=== PATIENT | female | born 1955 | race Caucasian/White ===

== ENCOUNTER 2024-11-02 11:55 | Inpatient (IN) | payer MEDICARE, MEDICAID ==
[~2024-11-02] VITALS: Ht 157.5 cm; Wt 52.6 kg
[2024-11-02] MEDS: HALOPERIDOL LACTATE 5 MG/ML VIAL IM ONE (12:09)
[2024-11-02] MEDS: DiphenhydrAMINE HCL 50 MG/ML VIAL IM ONE (12:09)
[2024-11-02] MEDS: LORazepam 2 MG/ML VIAL IM ONE (12:10)
[2024-11-02 13:06] LABS: BASOPHILS % (AUTO) 0.5 % (0.0-2.0); EOSINOPHILS % (AUTO) 0.4 % (1.0-6.0); HEMATOCRIT 36.6 % (36-46); HEMOGLOBIN 12.2 g/dL (12.0-16.0); LYMPHOCYTES # (AUTO) 1.1 K/uL (1.0-4.8); LYMPHOCYTES % (AUTO) 21.4 % (22.0-44.0); MEAN CORPUSCULAR HEMOGLOBIN 29.5 pg (26.0-34.0); MEAN CORPUSCULAR HGB CONC 33.4 G/dL (31.0-37.0); MEAN CORPUSCULAR VOLUME 89 fL (80-100); MONOCYTES # (AUTO) 0.4 K/uL (0.1-1.0); MONOCYTES % (AUTO) 7.5 % (2.0-9.0); NEUTROPHILS # (AUTO) 3.7 K/uL (1.8-7.7); NEUTROPHILS % (AUTO) 70.2 % (40.0-70.0); PLATELET COUNT (AUTO) 258 K/uL (150-450); RED BLOOD CELL COUNT(AUTO) 4.13 MIL/uL (4.00-5.20); RED CELL DISTRIBUTION WIDTH 13.1 % (11.5-14.5); WHITE BLOOD COUNT (AUTO) 5.3 K/uL (4.5-11.0)
[2024-11-02 13:07] LABS: COVID AG,FIA SOURCE NASAL SWAB
[2024-11-02 13:15] LABS: ANION GAP 10 mmol/L (8-16); CALCIUM, TOTAL 8.5 mg/dL (8.8-10.5); CARBON DIOXIDE 25 mmol/L (22-29); CHLORIDE 105 mmol/L (98-107); CREATININE 0.82 mg/dL (0.60-1.30); GLOMERULAR FILTR. RATE CALC > 60 mL/min (>60); GLUCOSE,RANDOM 119 mg/dL (70-110); POTASSIUM 3.4 mmol/L (3.5-5.1); SODIUM SERUM 140 mmol/L (136-145); UREA NITROGEN, BLOOD 16 mg/dL (7-18)
[2024-11-02 13:29] LABS: ALCOHOL, BLOOD (SERUM) < 3 mg/dL (0-10)
[2024-11-02 13:54] LABS: SARS-COV2 (COVID) ANTIGEN,FIA Negative (Negative)
[2024-11-02] MEDS: POTASSIUM CHLORIDE 20 MEQ ER TABLET PO ONE (13:57)
[2024-11-02] MEDS ORDERED: MAGNESIUM HYDROXIDE SUSPENSION 30 ML UDCUP PO PRN (16:30)
[2024-11-02] MEDS ORDERED: ZOLPIDEM TARTRATE 10 MG TABLET PO PRN (16:30)
[2024-11-02] MEDS ORDERED: LORazepam 2 MG TABLET PO PRN (16:30)
[2024-11-02] MEDS ORDERED: ACETAMINOPHEN 325 MG TABLET PO PRN (16:30)
[2024-11-02] MEDS ORDERED: HALOPERIDOL 5 MG TABLET PO PRN (16:30)
[2024-11-02] MEDS ORDERED: LOPERAMIDE HCL 2 MG CAPSULE PO PRN (16:30)
[2024-11-02] MEDS ORDERED: MAG HYDROX/ALUMINUM HYD/SIMETH ES 30 ML SUSPENSION UDCUP PO PRN (16:30)
[2024-11-03] MEDS ORDERED: INFLUENZA VIRUS VACCINE TVS (6MO+) 2024-25/PF 45 MCG/0.5 ML SYRINGE IM. ONE (06:00)
[2024-11-03] MEDS ORDERED: PNEUMOCOCCAL VACCINE POLYVALENT 0.5 ML SYRINGE [PPSV23] IM. ONE (06:00)
[2024-11-03 08:34] VITALS: BP 113/78; PULSE 89; RESP 16; O2SAT 95
[2024-11-03] MEDS ORDERED: RisperiDONE 1 MG TABLET PO SCH (09:45)
[2024-11-03] MEDS: RisperiDONE 1 MG TABLET PO SCH (09:45)
[2024-11-03 13:35] VITALS: BP 113/78; PULSE 89; RESP 16; O2SAT 95
[2024-11-03] MEDS ORDERED: MAG HYDROX/ALUMINUM HYD/SIMETH ES 30 ML SUSPENSION UDCUP PO PRN (14:15)
[2024-11-03] MEDS ORDERED: ALBUTEROL SULFATE HFA 90 MCG/PUFF 8 GM INHALER IH PRN (14:15)
[2024-11-03] MEDS ORDERED: NICOTINE 14 MG/24 HOUR PATCH TD PRN (14:15)
[2024-11-03] MEDS ORDERED: ONDANSETRON 4 MG TABLET PO PRN (14:15)
[2024-11-03] MEDS ORDERED: MAGNESIUM HYDROXIDE SUSPENSION 30 ML UDCUP PO PRN (14:15)
[2024-11-03] MEDS ORDERED: DOCUSATE SODIUM 100 MG CAPSULE PO PRN (14:15)
[2024-11-03] MEDS ORDERED: GuaiFENesin/D-METHORPHAN [SUGAR-FREE] 200-20MG/10 ML SYRUP UDCUP PO PRN (14:15)
[2024-11-03] MEDS ORDERED: ACETAMINOPHEN 325 MG TABLET PO PRN (14:15)
[2024-11-03] MEDS ORDERED: CloNIDine HCL 0.1 MG TABLET PO PRN (14:15)
[2024-11-03] MEDS ORDERED: IBUPROFEN 400 MG TABLET PO PRN (14:15)
[2024-11-03] MEDS ORDERED: PETROLATUM,WHITE 28 GM JELLY TP PRN (14:15)
[2024-11-03 20:42] VITALS: BP 117/80; PULSE 88; RESP 18; TEMP 98
[2024-11-03 21:31] VITALS: BP 121/75; PULSE 88; RESP 18; TEMP 98
[2024-11-04 08:37] VITALS: BP 121/69; PULSE 78; RESP 16; TEMP 96.9; O2SAT 96
[2024-11-04] MEDS: LOPERAMIDE HCL 2 MG CAPSULE PO PRN (13:47)
== END 2024-11-04 15:34 | disposition home or self-care (01) | DRG 750 ==
LOC: EMS 11:55 → B3A 11-03 02:36
PROVIDERS: ADMIT Psychiatry & Neurology Psychiatry; ATTEND Psychiatry & Neurology Psychiatry
PROC: GZHZZZZ Group Psychotherapy (ICD-10-PCS; principal; 2024-11-03)
DX: F20.0 Paranoid schizophrenia (principal); R45.850 Homicidal ideations; E87.6 Hypokalemia; R73.9 Hyperglycemia, unspecified; Z78.1 Physical restraint status; Z79.899 Other long term (current) drug therapy; Z20.822 Contact with and (suspected) exposure to COVID-19
CPT/HCPCS: 80048; 85025; G0480; J1200; J1630; J2060